=== PATIENT | female | born 1990 | race Two or more races ===

== ENCOUNTER 2017-07-23 09:20 | Inpatient (IN) | payer OTHER ==
[2017-07-23] MEDS: PRENATAL VITAMINS CHEWABLE TABLET PO (09:00)
[2017-07-23 10:25] LABS: HEMATOCRIT 39.9 % (36.0-47.0); MEAN CORPUSCULAR HEMOGLOBIN 29.5 pg (27.0-33.0); MEAN CORPUSCULAR HGB CONC 35.1 g/dl (32.0-36.5); PLATELET COUNT, AUTOMATED 175 10^3/uL (150-450); RED BLOOD COUNT 4.75 10^6/uL (4.00-5.40); RED CELL DISTRIBUTION WIDTH 15.1 % (11.5-14.5); WHITE BLOOD COUNT 9.6 10^3/uL (4.0-10.0)
[2017-07-23] MEDS: LACTATED RINGER'S 1000 ML IV (10:26)
[2017-07-23] MEDS: PENICILLIN G POTASSIUM IV 5 MU in D5W MINI-BAG PLUS 100 ML IV (10:27)
[2017-07-23] MEDS ORDERED: FENTANYL 2MCG/ML ROPIVACAINE 0.2% IN 0.9% NACL 200ML IVBAG As Ordered (11:03)
[2017-07-23] MEDS: LR 1,000 ML IV (11:06)
[2017-07-23] MEDS ORDERED: OXYTOCIN 30 UNITS IN 0.9% NaCl 500ML IV BAG (J2590) As Ordered (11:19)
[2017-07-23] MEDS ORDERED: EPIDURAL/PCA KEYS XX (12:30)
[2017-07-23] MEDS ORDERED: FENTANYL/ROPIVACAINE/NACL BAG 200 ML EPIDURAL (12:30)
[2017-07-23] MEDS ORDERED: ePHEDrine SULFATE 25 MG/5 ML(5MG/ML) SYRINGE IV (12:30)
[2017-07-23] MEDS ORDERED: EPIDURAL COMMENT XX (12:30)
[2017-07-23] MEDS ORDERED: ONDANSETRON 4MG/2ML VIAL (J2405) IV (12:30)
[2017-07-23] MEDS ORDERED: REFRIGERATOR IV KEYS XX (12:30)
[2017-07-23] MEDS ORDERED: LACTATED RINGER'S 1000 ML IV (12:30)
[2017-07-23] MEDS ORDERED: NALOXONE INJ 0.4 MG/1 ML VIAL (J2310) IV (12:30)
[2017-07-23] MEDS ORDERED: diphenhydrAMINE INJ 50MG/ML VIAL (J1200) IV (12:30)
[2017-07-23] MEDS: PENICILLIN G POTASSIUM IV 2.5 MU in APPROPRIATE DILUENT 1 EA IV (14:19)
[2017-07-23] MEDS ORDERED: RHOGAM 300 MCG (1500 IU) INJ (J2790) IM (15:15)
[2017-07-23] MEDS: OXYTOCIN DRIP 30 UNITS in APPROPRIATE DILUENT 1 EA IV (15:15)
[2017-07-23] MEDS ORDERED: DIBUCAINE 1% OINTMENT 30GM TOP (15:15)
[2017-07-23] MEDS ORDERED: MEASLES,MUMPS,RUBELLA VACCINE INJ (MMR-II) (90707) SC (15:15)
[2017-07-23] MEDS ORDERED: ACETAMINOPHEN TAB 650MG DOSE (2X325MG) PO (15:15)
[2017-07-23] MEDS ORDERED: METOCLOPRAMIDE INJ 10MG/2ML VIAL (J2765) IV (15:15)
[2017-07-23] MEDS: DOCUSATE SODIUM 100 MG CAP PO (20:57)
[2017-07-24] MEDS: DOCUSATE SODIUM 100 MG CAP PO (08:21)
[2017-07-24] MEDS: PRENATAL VITAMINS CHEWABLE TABLET PO (08:21)
[2017-07-24] MEDS: IBUPROFEN 800 MG TAB PO (08:21)
== END 2017-07-24 17:00 | disposition home or self-care (01) | DRG 775 ==
LOC: M LDO 09:20 → M LDI 09:50 → M OBS 17:40
PROVIDERS: Obstetrics & Gynecology
PROC: 10E0XZZ Delivery of Products of Conception, External Approach (ICD-10-PCS; principal; 2017-07-23)
DX: O77.0 Labor and delivery complicated by meconium in amniotic fluid (principal); Z3A.39 39 weeks gestation of pregnancy; O99.824 Streptococcus B carrier state complicating childbirth; Z37.0 Single live birth

== ENCOUNTER 2018-08-29 19:49 | Emergency (ER) | payer OTHER, SELFPAY ==
[~2018-08-29] VITALS: Ht 167.6 cm; Wt 54.1 kg
[~2018-08-29 19:49] MED LIST: COLA100C5 PO; MOTR200T44 PO; PRENTAB9 PO; TYLE325T5 PO
[2018-08-29] MEDS ORDERED: KETOROLAC 30 MG/ML VIAL (J1885) IV ONE (22:30)
[2018-08-29] MEDS ORDERED: METOCLOPRAMIDE INJ 10MG/2ML VIAL (J2765) IV ONE (22:30)
[2018-08-29] MEDS ORDERED: diphenhydrAMINE INJ 50MG/ML VIAL (J1200) IV ONE (22:30)
[2018-08-29] MEDS ORDERED: NS 1,000 ML IV ONE (22:30)
[2018-08-30 00:14] LABS: HCG, SERUM QUALITATIVE NEGATIVE (NEGATIVE)
[2018-08-30 00:19] LABS: HEMATOCRIT 41.4 % (36.0-47.0); HEMOGLOBIN 13.5 g/dl (12.0-15.5); MEAN CORPUSCULAR HEMOGLOBIN 28.6 pg (27.0-33.0); MEAN CORPUSCULAR HGB CONC 32.6 g/dl (32.0-36.5); MEAN CORPUSCULAR VOLUME 87.7 fl (80.0-96.0); PLATELET COUNT, AUTOMATED 255 10^3/uL (150-450); RED BLOOD COUNT 4.72 10^6/uL (4.00-5.40); WHITE BLOOD COUNT 6.5 10^3/uL (4.0-10.0)
[2018-08-30 00:22] LABS: ALBUMIN 3.7 GM/DL (3.2-5.2); ALT/SGPT 23 U/L (12-78); BILIRUBIN,DIRECT 0.2 MG/DL (0.0-0.2); BILIRUBIN,TOTAL 0.9 MG/DL (0.2-1.0); BLOOD UREA NITROGEN 8 MG/DL (7-18); CALCIUM LEVEL 8.2 MG/DL (8.5-10.1); CARBON DIOXIDE LEVEL 26 MEQ/L (21-32); CHLORIDE LEVEL 109 MEQ/L (98-107); CREATININE FOR GFR 0.68 MG/DL (0.55-1.30); GLOMERULAR FILTRATION RATE > 60.0 (>60); GLUCOSE, FASTING 113 MG/DL (70-100); POTASSIUM SERUM 3.6 MEQ/L (3.5-5.1); SODIUM LEVEL 141 MEQ/L (136-145); TOTAL PROTEIN 7.2 GM/DL (6.4-8.2)
[2018-08-30 04:13] VITALS: BP 122/69
[2018-08-30] MEDS ORDERED: VALA500T5 PO (04:32)
== END 2018-08-30 04:34 | disposition home or self-care (01) ==
LOC: M ED 19:49
DX: G43.909 Migraine, unspecified, not intractable, without status migrainosus (principal)
CPT/HCPCS: 36415; 80048; 80076; 84703; 85027; 96361; 96374; 96375; 99284; J1200; J1885; J2765

== ENCOUNTER → 2018-12-23 | Outpatient (CLI) | payer OTHER ==
[~2018-12-23] MED LIST changes: +VALA500T5 PO
== END ==
LOC: M RAD 07:21
PROVIDERS: ATTEND Podiatrist
DX: M25.571 Pain in right ankle and joints of right foot (principal)